=== PATIENT | female | born 1975 | race Two or more races ===

== ENCOUNTER 2024-02-29 20:14 | Inpatient (IN) | payer BC ==
[~2024-02-29] VITALS: Ht 157.5 cm; Wt 81.6 kg
[2024-02-29] MEDS ORDERED: METRONIDAZOLE500 MG PO (20:48)
[2024-02-29] MEDS ORDERED: AMOXICILLIN500 M1 PO (20:48)
[2024-02-29] MEDS ORDERED: PANTOPRAZOLE SO40 MG PO (20:49)
[2024-02-29] MEDS ORDERED: ACIDOPHILUS1 EAC3 PO (20:49)
[2024-02-29] MEDS ORDERED: FAMOTIDINE/PF 20 MG in 0.9 % SODIUM CHLORIDE 8 ML IV PUSH STA (20:57)
[2024-02-29] MEDS ORDERED: ONDANSETRON HCL 2 MG/ML VIAL IV ONE (21:00)
[2024-02-29] MEDS ORDERED: KETOROLAC TROMETHAMINE 30 MG VIAL IV ONE (21:00)
[2024-02-29] MEDS ORDERED: 0.9 % SODIUM CHLORIDE 1,000 ML IV SCH (21:00)
[2024-02-29] MEDS ORDERED: PIPERACILLIN/TAZOBACTAM SODIUM 3.375 GM VIAL IV ONE (21:00)
[2024-02-29 21:36] LABS: HEMATOCRIT 35.9 % (36.0-45.00); HEMOGLOBIN 12.4 g/dL (12.0-15.00); MEAN CELL VOLUME 88.4 fL (80.00-100.00); MEAN CORPUSCULAR HEMOGLOBIN 30.4 pg (27.00-32.0); MEAN CORPUSCULAR HGB CONC 34.4 g/dl (32.0-36.0); PLATELET COUNT 257 K/uL (150-450); RED BLOOD COUNT 4.06 M/uL (4.00-6.00); RED CELL DISTRIBUTION WIDTH 13.5 % (11.5-14.5)
[2024-02-29 22:01] LABS: ALBUMIN 3.6 gm/dL (3.4-5.0); ALKALINE PHOSPHATASE 74 U/L (50-136); ALT/SGPT 58 U/L (12-78); AMYLASE 79 U/L (25-115); ANION GAP 10 (10.0-20.0); AST/SGOT 46 U/L (15-37); BILIRUBIN TOTAL 0.17 mg/dL (0.3-1.2); BILIRUBIN,CONJUGATED < 0.10 mg/dL (0.0-0.2); BILIRUBIN,UNCONJUGATED 0.07 mg/dL (0.0-0.6); BLOOD UREA NITROGEN 15 mg/dL (7-18); BUN CREA RATIO 17 (7.0-25.0); CARBON DIOXIDE 25 mEq/L (21-32); CHLORIDE 107 mmol/L (98-107); CREATININE SERUM 0.86 mg/dL (0.55-1.02); GFR 69.84; GLOBULINA 3.8 G/DL (2.4-3.5); GLUCOSE FASTING 100 mg/dL (65-100); LIPASE 55 U/L (13-75); OSMOLALITY SERUM 277 MOSM/KG (275-295); POTASSIUM 3.76 mEq/L (3.5-5.1); SODIUM 138 mmol/L (136-145); TOTAL PROTEIN 7.4 gm/dL (6.4-8.2)
[2024-02-29 22:06] LABS: PH,URINE 5.5 (5.0-8.0); URINE APPEARANCE Clear; URINE BILIRRUBIN Negative (NEGATIVE); URINE BLOOD Negative; URINE COLOR Yellow; URINE GLUCOSE Negative (NEGATIVE); URINE KETONE Trace (NEGATIVE); URINE LEUKOCYTE Trace; URINE NITRATE Negative; URINE PROTEIN Negative (NEGATIVE); URINE UROBILINOGEN 0.2 E.U./dl
[2024-02-29 22:07] LABS: URINE BACTERIA 8.8 uL (0.0-1933); URINE EPITHELIAL CELLS 32.6 uL (0.0-38.8); URINE RBC 5.1 uL (0.0-20.8); URINE WBC 2.6 uL (0.0-23.2)
[2024-03-01] MEDS ORDERED: PIPERACILLIN/TAZOBACTAM SODIUM 3.375 GM in DEXTROSE 5 % IN WATER 100 ML IV SCH (00:58)
[2024-03-01] MEDS ORDERED: 0.9 % SODIUM CHLORIDE 1,000 ML IV SCH (01:00)
[2024-03-01] MEDS ORDERED: ACETAMINOPHEN 500 MG GEL..CAP PO PRN (01:00)
[2024-03-01] MEDS ORDERED: MORPHINE SULFATE 2 MG/ML CARTRIDGE IV SCH (01:00)
[2024-03-01] MEDS ORDERED: POLYETHYLENE GLYCOL 3350 17 GM BLIST.PACK PO ONE (01:00)
[2024-03-01 02:03] VITALS: BP 124/87
[2024-03-01 04:32] LABS: INR 1.09; PARTIAL THROMBOPLASTIN TIME 28.5 SECONDS (22.0-34.0); PROTHROMBIN TIME 11.8 SECONDS (9.0-11.5)
[2024-03-01] MEDS ORDERED: MEPERIDINE HCL/PF 25 MG/ML VIAL IV PRN (07:15)
[2024-03-01 07:47] VITALS: BP 99/63; O2SAT 99
[2024-03-01] MEDS ORDERED: KETOROLAC TROMETHAMINE 30 MG VIAL IV PRN (08:00)
[2024-03-01] MEDS ORDERED: FAMOTIDINE/PF 20 MG in 0.9 % SODIUM CHLORIDE 8 ML IV PUSH SCH (09:00)
[2024-03-01 10:40] VITALS: BP 108/71; O2SAT 100
[2024-03-01 16:00] VITALS: BP 108/70; O2SAT 99
[2024-03-02 01:11] VITALS: BP 116/69; O2SAT 99
[2024-03-02] MEDS ORDERED: LEVOTHYROXINE SODIUM 75 MCG TABLET PO SCH (06:00)
[2024-03-02 08:49] VITALS: BP 119/75; O2SAT 100
[2024-03-02] MEDS ORDERED: LACTULOSE 10 G/15 ML ML PO SCH (09:00)
[2024-03-02] MEDS ORDERED: LACTULOSE 20 G/30 ML BLIST.PACK PO SCH (09:00)
[2024-03-02 11:54] LABS: T4 FREE 1.04 NG/ML (0.76-1.46); T4 TOTAL 10.17 UG/DL (4.8-13.9); TSH 1.43 uIU/mL (0.358-3.74)
[2024-03-02 16:00] VITALS: BP 98/63; O2SAT 99
[2024-03-03 01:50] VITALS: BP 121/74; O2SAT 98
[2024-03-03 08:56] VITALS: BP 107/71; O2SAT 97
== END 2024-03-03 12:49 | disposition home or self-care (01) | DRG 395 ==
LOC: ER 20:16 → SURG 03-01 01:01 → SEC-K 03-01 01:01 → SURG 03-01 10:04
PROVIDERS: General Practice; ADMIT Internal Medicine; ATTEND Internal Medicine
PROC: BW21YZZ Computerized Tomography (CT Scan) of Abdomen and Pelvis using Other Contrast (ICD-10-PCS; principal; 2024-02-29)
DX: K62.89 Other specified diseases of anus and rectum (principal); K52.9 Noninfective gastroenteritis and colitis, unspecified